=== PATIENT | male | born 1980 | race Caucasian/White ===

== ENCOUNTER 2019-01-02 08:31 | Emergency (ER) | payer OTHER ==
[~2019-01-02] VITALS: Ht 170.2 cm; Wt 95.3 kg
[2019-01-02] MEDS ORDERED: [UNRECOGNIZED DRUG - OTHER] (08:46)
[2019-01-02] MEDS ORDERED: ULTRAM 50MG TAB50 MG PO (09:36)
[2019-01-02] MEDS ORDERED: IBUPROFEN 800800 MG PO (09:36)
[2019-01-02 10:09] VITALS: BP 128/85
== END 2019-01-02 10:11 | disposition home or self-care (01) ==
LOC: M.ERS 08:31
DX: M25.511 Pain in right shoulder (principal); M54.2 Cervicalgia; M54.6 Pain in thoracic spine; V89.2XXA Person injured in unspecified motor-vehicle accident, traffic, initial encounter; Y92.89 Other specified places as the place of occurrence of the external cause; Y93.89 Activity, other specified; Y99.8 Other external cause status